=== PATIENT | male | born 1955 | race Caucasian/White ===

== ENCOUNTER → 2017-02-20 | Outpatient (CLI) | payer BC | LOC: BRMIMAGING 08:29 | PROVIDERS: ATTEND Physician Assistant Medical | DX: R16.0 Hepatomegaly, not elsewhere classified (principal); D37.6 Neoplasm of uncertain behavior of liver, gallbladder and bile ducts; K82.4 Cholesterolosis of gallbladder; N28.1 Cyst of kidney, acquired | CPT/HCPCS: 76705-PO ==